=== PATIENT | female | born 1985 | race Caucasian/White ===

== ENCOUNTER 2016-09-07 12:57 | Emergency (ER) | payer OTHER ==
[~2016-09-07] VITALS: Ht 170.2 cm; Wt 54.5 kg
[2016-09-07 13:01] VITALS: TEMP 99.3
[2016-09-07] MEDS ORDERED: LEXAPRO 10MG10 MG PO (13:46)
[2016-09-07] MEDS ORDERED: SPRINTEC 35 MCG1 TAB PO (13:46)
[2016-09-07] MEDS ORDERED: LEVAQUIN 750MG750 M1 PO (15:50)
[2016-09-07] MEDS ORDERED: TUSS PO (16:09)
[2016-09-07 16:11] VITALS: BP 106/78; PULSE 99
== END 2016-09-07 16:12 | disposition home or self-care (01) ==
LOC: COL.ER 12:57
DX: J18.9 Pneumonia, unspecified organism (principal); S29.011A Strain of muscle and tendon of front wall of thorax, initial encounter; X50.9XXA Other and unspecified overexertion or strenuous movements or postures, initial encounter
CPT/HCPCS: J1885; J7512

== ENCOUNTER 2019-02-13 09:53 | Emergency (ER) | payer OTHER ==
[~2019-02-13] VITALS: Ht 170.2 cm; Wt 61.4 kg
[~2019-02-13 09:53] MED LIST: LEVAQUIN 750MG750 M1 PO; LEXAPRO 10MG10 MG PO; SPRINTEC 35 MCG1 TAB PO; TUSS PO
[2019-02-13 10:01] VITALS: BP 116/62
[2019-02-13] MEDS ORDERED: EFFEXOR XR75 MG/CAP PO (10:05)
[2019-02-13] MEDS ORDERED: AMOXICILLIN 8751 TAB PO (10:06)
[2019-02-13] MEDS ORDERED: ZITHROMAX Z PA250 MG PO (11:10)
[2019-02-13] MEDS ORDERED: PREDNISONE20 MG PO (11:10)
[2019-02-13 11:25] VITALS: PULSE 86; TEMP 98.9
== END 2019-02-13 11:25 | disposition home or self-care (01) ==
LOC: COL.ER 09:53
DX: J20.9 Acute bronchitis, unspecified (principal)

== ENCOUNTER 2020-01-20 19:28 | Emergency (ER) | payer OTHER ==
[~2020-01-20] VITALS: Ht 170.2 cm; Wt 63.6 kg
[~2020-01-20 19:28] MED LIST changes: +AMOXICILLIN 8751 TAB PO; +EFFEXOR XR75 MG/CAP PO; +PREDNISONE20 MG PO; +ZITHROMAX Z PA250 MG PO
[2020-01-20 21:00] VITALS: BP 120/68; PULSE 82; TEMP 98
== END 2020-01-20 21:03 | disposition home or self-care (01) ==
LOC: COL.ER 19:28
DX: S93.402A Sprain of unspecified ligament of left ankle, initial encounter (principal); Z79.52 Long term (current) use of systemic steroids; X50.1XXA Overexertion from prolonged static or awkward postures, initial encounter; Y93.64 Activity, baseball; Y92.830 Public park as the place of occurrence of the external cause

== ENCOUNTER → 2020-09-08 | Outpatient (CLI) | payer OTHER | LOC: COL.RAD 13:32 | DX: E01.0 Iodine-deficiency related diffuse (endemic) goiter (principal) ==